=== PATIENT | female | born 1970 | race Two or more races ===

== ENCOUNTER 2018-07-27 10:28 | Outpatient (CLI) | payer OTHER ==
[~2018-07-27 10:28] MED LIST: ALLEGRA ALLERGY60 MG PO; CLONAZEPAM0.5 MG; FLONASE16 GM NASAL; GILTUSS TR TAB1 EACH PO; GUMSOL SPRAY30 ML MM; PRISTIQ ER50 MG; TUSSI-PRES B LIQ5 ML; ZITHROMAX500 MG PO; ZYRTEC10 MG PO
== END 2018-07-27 10:48 | disposition home or self-care (01) ==
LOC: RAD 501 10:28
DX: R05 Cough (principal)

== ENCOUNTER 2019-02-01 10:04 | Outpatient (CLI) | payer OTHER | END 2019-02-01 10:13 | disposition home or self-care (01) | LOC: RAD 501 10:04 | DX: J01.11 Acute recurrent frontal sinusitis (principal) ==